=== PATIENT | female | born 1980 | race Two or more races ===

== ENCOUNTER 2016-07-20 13:39 | Emergency (ER) | payer SELFPAY ==
--- NOTE | 2016-07-20 14:14 | ER Document Report ---
ED Medical Screen (RME) - General Stated Complaint: BODY PAIN Notes: onset: yesterday fever, bodyaches, headaches chest pain on the right side of her chest that hurts with deep inhalation (-)recent travel, BC, tobacco use, general anesthesia over the past 90 days I have greeted and performed a rapid initial assessment of this patient. A comprehensive ED assessment and evaluation of the patient, analysis of test results and completion of the medical decision making process will be conducted by additional ED providers. TRAVEL OUTSIDE OF THE [place] IN LAST 30 DAYS: No - Related Data Allergies/Adverse Reactions: No Known Allergies Allergy (Verified 07/20/16 14:13) Past Medical History - Immunizations Hx Diphtheria, Pertussis, Tetanus Vaccination: No Physical Exam - Vital signs Vitals: Temp Pulse Resp BP Pulse Ox 97.9 F 81 16 112/64 97 07/20/16 13:49 07/20/16 13:49 07/20/16 13:49 07/20/16 13:49 07/20/16 13:49 Course - Vital Signs Vital signs: Temp Pulse Resp BP Pulse Ox 97.9 F 81 16 112/64 97 07/20/16 13:49 07/20/16 13:49 07/20/16 13:49 07/20/16 13:49 07/20/16 13:49
[2016-07-20] MEDS ORDERED: IBUPROFEN 800 MG TABLET PO ONE (14:15)
--- NOTE | 2016-07-20 15:30 | ER Document Report ---
ED General - General Chief Complaint: Pain All Over Stated Complaint: BODY PAIN Time seen by provider: 15:30 Mode of Arrival: Ambulatory Information source: Patient Notes: 35-year-old female complaining of sudden onset of myalgias, arthralgias, shivering, fever, and then sweats yesterday. She vomited once about 7 PM. Today she woke up with some lower lateral right sided chest pain that hurts when she moves and when she takes a deep breath. She does have a dry cough. Her vital signs are stable at triage. No sore throat runny nose. No abdominal pain flank pain. No diarrhea or constipation. No urinary urgency frequency or dysuria. No vaginal discharge. TRAVEL OUTSIDE OF THE [place] IN LAST 30 DAYS: No - Related Data Allergies/Adverse Reactions: No Known Allergies Allergy (Verified 07/20/16 14:13) Past Medical History - General Information source: Patient - Social History Smoking Status: Never Smoker Chew tobacco use (# tins/day): No Frequency of alcohol use: None Drug Abuse: None Lives with: Family Family History: Reviewed & Not Pertinent Patient has suicidal ideation: No Patient has homicidal ideation: No - Medical History Medical History: Negative Renal/ Medical History: Denies: Hx Peritoneal Dialysis Surgical Hx: Negative - Immunizations Hx Diphtheria, Pertussis, Tetanus Vaccination: No Review of Systems - Review of Systems Constitutional: See HPI EENT: No symptoms reported Cardiovascular: No symptoms reported Respiratory: See HPI Gastrointestinal: No symptoms reported Genitourinary: No symptoms reported Female Genitourinary: No symptoms reported Musculoskeletal: See HPI Skin: No symptoms reported Hematologic/Lymphatic: No symptoms reported Neurological/Psychological: No symptoms reported Physical Exam - Vital signs Vitals: Temp Pulse Resp BP Pulse Ox 97.9 F 81 16 112/64 97 07/20/16 13:49 07/20/16 13:49 07/20/16 13:49 07/20/16 13:49 07/20/16 13:49 Interpretation: Normal Notes: pale, looks dry - General General appearance: Alert In distress: None - HEENT Head: Normocephalic, Atraumatic Eyes: Normal Conjunctiva: Normal Pupils: PERRL Tympanic membrane: Normal Mucous membranes: Dry Pharynx: Normal Neck: Supple. No: Lymphadenopathy - Respiratory Respiratory status: No respiratory distress Chest status: Tender - lower right lateral chest wall Breath sounds: Normal Chest palpation: Normal - Cardiovascular Rhythm: Regular Heart sounds: Normal auscultation Murmur: No - Abdominal Inspection: Normal Distension: No distension Bowel sounds: Normal Tenderness: Tender - mild RUQ. No: Llamas's sign, Guarding, Rebound Organomegaly: No organomegaly. No: Hepatomegaly, Splenomegaly - Back Back: Normal, Nontender. No: CVA tenderness - Extremities General upper extremity: Normal inspection, Nontender, Normal color, Normal ROM , Normal temperature General lower extremity: Normal inspection, Nontender, Normal color, Normal ROM , Normal temperature, Normal weight bearing. No: Jose Angel's sign - Neurological Neuro grossly intact: Yes Cognition: Normal Orientation: AAOx4 [place] Coma Scale Eye Opening: Spontaneous [place] Coma Scale Verbal: Oriented [place] Coma Scale Motor: Obeys Commands [place] Coma Scale Total: 15 Speech: Normal Motor strength normal: LUE, RUE, LLE, RLE Sensory: Normal - Psychological Associated symptoms: Normal affect, Normal mood - Skin Skin Temperature: Warm Skin Moisture: Dry Skin Color: Normal Skin irregularity: negative: Rash Course - Re-evaluation Re-evalutation: 07/20/16 19:07 EKG is normal sinus rhythm, chest x-ray is negative. Labs are negative, urine pending. 07/20/16 19:16 I have consulted with the supervisory physician per [facility] Guidelines. Dr. Dunn reported off to Ed GARCIA at the bedside. Will l discharge her after the antibiotic is completed and to make sure that she can take oral fluids. Rocephin 1 g given IV for a urinary tract infection on urinalysis with 3+ bacteria and 56 WBCs. Urine culture is pending. Pt feeling better with pink returning to her cheeks. 07/20/16 19:19 - Vital Signs Vital signs: Temp Pulse Resp BP Pulse Ox 97.9 F 81 16 112/64 97 07/20/16 13:49 07/20/16 13:49 07/20/16 13:49 07/20/16 13:49 07/20/16 13:49 - Laboratory Result Diagrams: 07/20/16 17:27 07/20/16 17:27 Laboratory results interpreted by me: 07/20/16 18:37 Urine Protein 30 H Urine Ketones 20 H Urine Urobilinogen 2.0 H Ur Leukocyte Esterase SMALL H Urine Ascorbic Acid 40 H - Transfer of Care Care transferred to following provider: Mercedes GARCIA at 1910 Discharge - Discharge Clinical Impression: Right upper quadrant abdominal pain, right lower chest wall tender, dehydration Urinary tract infection Qualifiers: Urinary tract infection type: site unspecified Hematuria presence: without hematuria Qualified Code(s): N39.0 - Urinary tract infection, site not specified Condition: Good Disposition: HOME, SELF-CARE Instructions: Urinary Tract Infection ([facility]), Abdominal Pain ([facility]), Antinausea Medication ([facility]), Dehydration ([facility]), Vomiting ([facility]), Rocephin ([facility]), Cephalexin ([facility]) Additional Instructions: plenty of fluids reTurn to the emergency room if worse Prescriptions: Cephalexin Monohydrate [Keflex 500 mg Capsule] 500 mg PO QID #28 capsule Ondansetron HCl [Zofran 4 mg Tablet] 1 - 2 tab PO Q4H PRN #30 tablet PRN Reason: Forms: Return to Work
[2016-07-20] MEDS ORDERED: NORMAL SALINE 1000 ML 1,000 ML IV ONE ×2 (16:59→18:15)
[2016-07-20 17:41] LABS: ABSOLUTE EOSINOPHILS # (AUTO) 0.1 10^3/uL (0.0-0.6); ABSOLUTE LYMPHOCYTES (AUTO) 1.4 10^3/uL (0.5-4.7); ABSOLUTE MONOCYTES (AUTO) 0.6 10^3/uL (0.1-1.4); ABSOLUTE NEUT (AUTO) 4.2 10^3/uL (1.7-8.2); BASOPHILS % (AUTO) 0.7 % (0-2); EOSINOPHILS % (AUTO) 1.3 % (0-6); HEMOGLOBIN 12.3 g/dL (12.0-15.5); HGB HCT DIFFERENCE -0.1; LYMPHOCYTES % (AUTO) 22.5 % (13-45); MEAN CORPUSCULAR HEMOGLOBIN 28.3 pg (27.0-33.4); MEAN CORPUSCULAR HGB CONC 33.1 g/dL (32.0-36.0); MEAN CORPUSCULAR VOLUME 86 fl (80-97); MONOCYTES % (AUTO) 9.4 % (3-13); RED BLOOD COUNT 4.33 10^6/uL (3.72-5.28); RED CELL DISTRIBUTION WIDTH 12.7 % (11.5-14.0); SEGMENTED NEUTROPHILS % (AUTO) 66.1 % (42-78); WHITE BLOOD COUNT 6.4 10^3/uL (4.0-10.5)
[2016-07-20 18:01] LABS: ALANINE AMINOTRANSFERASE 31 U/L (9-52); ALBUMIN 4.2 g/dL (3.5-5.0); ALKALINE PHOSPHATASE 69 U/L (38-126); ANION GAP 11 (5-19); ASPARTATE AMINO TRANSFERASE 23 U/L (14-36); BILIRUBIN,TOTAL 0.5 mg/dL (0.2-1.3); BLOOD UREA NITROGEN 11 mg/dL (7-20); CALCIUM 9.5 mg/dL (8.4-10.2); CARBON DIOXIDE 26 mmol/L (22-30); CHLORIDE 102 mmol/L (98-107); CREATININE RESULT 0.56 mg/dL (0.52-1.25); LIPASE 64.4 U/L (23-300); POTASSIUM 4.1 mmol/L (3.6-5.0); SODIUM 139.4 mmol/L (137-145)
[2016-07-20 18:02] LABS: GLUCOSE 93 mg/dL (75-110)
[2016-07-20 19:03] LABS: APPEARANCE,URINE CLOUDY; BILIRUBIN,URINE NEGATIVE (NEGATIVE); GLUCOSE, URINE NEGATIVE (NEGATIVE); KETONES,URINE 20 mg/dL (NEGATIVE); LEUKOCYTE ESTERASE,URINE SMALL (NEGATIVE); NITRITE,URINE NEGATIVE (NEGATIVE); PROTEIN,URINE 30 mg/dL (NEGATIVE); URINE SPECIFIC GRAVITY 1.031
[2016-07-20] MEDS ORDERED: CEFTRIAXONE 1 GM/D5W RTU 50 ML IV ONE (19:08)
[2016-07-20 20:21] VITALS: BP 122/88
--- NOTE | 2016-07-21 10:58 | EKG REPORT ---
SEVERITY:- NORMAL ECG - SINUS RHYTHM : Confirmed by: Isidra Tovar 21-Jul-2016 10:58:12
== END 2016-07-20 20:19 | disposition home or self-care (01) ==
LOC: ER 13:39
DX: N39.0 Urinary tract infection, site not specified (principal); R10.11 Right upper quadrant pain; R07.89 Other chest pain; E86.0 Dehydration; M79.1 Myalgia; M25.50 Pain in unspecified joint
CPT/HCPCS: 93005; 99284; 96361; 96365; 36415; 87086; 83690; 85025; 87088; 80053; 81001; 87186; 71020; 93010; J7030; J0696

== ENCOUNTER 2016-11-14 22:46 | Inpatient (IN) | payer OTHER ==
[2016-11-15] MEDS ORDERED: NORMAL SALINE 1000 ML 1,000 ML IV ONE (00:41)
[2016-11-15] MEDS ORDERED: ONDANSETRON HCL INJ/PF 4 MG/2 ML SDV IV ONE (00:41)
[2016-11-15] MEDS ORDERED: MORPHINE SULFATE 10 MG/ML INJ IV ONE ×2 (00:41→07:10)
[2016-11-15 01:20] LABS: ABSOLUTE LYMPHOCYTES (AUTO) 0.8 10^3/uL (0.5-4.7); ABSOLUTE MONOCYTES (AUTO) 0.6 10^3/uL (0.1-1.4); ABSOLUTE NEUT (AUTO) 9.2 10^3/uL (1.7-8.2); BASOPHILS % (AUTO) 0.4 % (0-2); HEMATOCRIT 39.1 % (36.0-47.0); HGB HCT DIFFERENCE -0.1; LYMPHOCYTES % (AUTO) 7.7 % (13-45); MEAN CORPUSCULAR HEMOGLOBIN 27.7 pg (27.0-33.4); MEAN CORPUSCULAR HGB CONC 33.2 g/dL (32.0-36.0); MEAN CORPUSCULAR VOLUME 84 fl (80-97); MONOCYTES % (AUTO) 5.5 % (3-13); RED BLOOD COUNT 4.68 10^6/uL (3.72-5.28); RED CELL DISTRIBUTION WIDTH 12.9 % (11.5-14.0); SEGMENTED NEUTROPHILS % (AUTO) 86.4 % (42-78); WHITE BLOOD COUNT 10.7 10^3/uL (4.0-10.5)
[2016-11-15 01:42] LABS: ALANINE AMINOTRANSFERASE 30 U/L (9-52); ALBUMIN 4.2 g/dL (3.5-5.0); ALKALINE PHOSPHATASE 84 U/L (38-126); ANION GAP 11 (5-19); ASPARTATE AMINO TRANSFERASE 17 U/L (14-36); BILIRUBIN,DIRECT 0.6 mg/dL (0.0-0.4); BILIRUBIN,TOTAL 1.2 mg/dL (0.2-1.3); BLOOD UREA NITROGEN 12 mg/dL (7-20); CALCIUM 9.4 mg/dL (8.4-10.2); CARBON DIOXIDE 25 mmol/L (22-30); CHLORIDE 103 mmol/L (98-107); CREATININE RESULT 0.74 mg/dL (0.52-1.25); GLUCOSE 133 mg/dL (75-110); LIPASE 52.7 U/L (23-300); POTASSIUM 4.1 mmol/L (3.6-5.0); TOTAL PROTEIN 7.9 g/dL (6.3-8.2)
--- NOTE | 2016-11-15 02:57 | ER Document Report ---
ED General - General Chief Complaint: Flank Pain Stated Complaint: RIGHT FLANK PAIN Time Seen by Provider: 11/15/16 00:37 Notes: Patient is a 36-year-old female presents with complaint of pain in her right back and on the right side. She has had some vomiting. She says drinking liquids seems to make her pain worse. No dysuria. No fevers. No trauma to the area. No abnormal vaginal discharge or bleeding. No other complaints at this time. No previous history of kidney stones. TRAVEL OUTSIDE OF THE [place] IN LAST 30 DAYS: No - Related Data Allergies/Adverse Reactions: No Known Allergies Allergy (Verified 07/20/16 14:13) Past Medical History - Social History Smoking Status: Never Smoker Frequency of alcohol use: None Drug Abuse: None Family History: Reviewed & Not Pertinent Renal/ Medical History: Denies: Hx Peritoneal Dialysis - Immunizations Hx Diphtheria, Pertussis, Tetanus Vaccination: No Review of Systems - Review of Systems Notes: My Normal Review Basic REVIEW OF SYSTEMS: CONSTITUTIONAL : Denies fever, chills, or sweats. Denies recent illness. RESPIRATORY: Denies cough, cold, or chest congestion. Denies shortness of breath, difficulty breathing, or wheezing. GASTROINTESTINAL: Right-sided flank pain radiating around her abdomen. Denies nausea, vomiting, or diarrhea. Denies constipation. Last BM: GENITOURINARY: Denies difficulty urinating, painful urination, burning, frequency, or blood in urine. FEMALE GENITOURINARY: Denies vaginal bleeding, abnormal or irregular periods. MUSCULOSKELETAL: Right-sided back pain. SKIN: Denies rash or skin lesions. NEUROLOGICAL: Denies altered mental status or loss of consciousness. Denies headache. Denies weakness or paralysis or loss of use of either side. Denies problems with gait or speech. Denies sensory or motor loss. ALL OTHER SYSTEMS REVIEWED AND NEGATIVE. Physical Exam - Vital signs Vitals: Temp Pulse Resp BP Pulse Ox 99.6 F 124 H 18 114/58 L 97 11/14/16 22:51 11/14/16 22:51 11/14/16 22:51 11/14/16 22:51 11/14/16 22:51 - Notes Notes: General Appearance: Well nourished, alert, cooperative, no acute distress, moderate obvious discomfort. Vitals: reviewed, See vital signs table. Head: no swelling or tenderness to the head Eyes: PERRL, EOMI, Conjuctiva clear Mouth: No decreasd moisture Neck: Supple, no neck tenderness, No thyromegaly Lungs: No wheezing, No rales, No rhonci, No accessory muscle use, good air exchange bilaterally. Heart: Normal rate, Regular rythm, No murmur, no rub Abdomen: Normal BS, soft, No rigidity, no reproducible anterior abdominal tenderness to palpation., No guarding, no rebound, no abdominal masses, no organomegaly Back: Pain to palpation over right lower back. Extremities: strength 5/5 in all extremities, good pulses in all extremities, no swelling or tenderness in the extremities, no edema. Skin: warm, dry, appropriate color, no rash Neuro: speech clear, oriented x 3, normal affect, responds appropriately to questions. Course - Re-evaluation Re-evalutation: 11/15/16 03:16 Patient's pain has improved after the pain medication. She now feels like she has to urinate. Once we obtain a urinalysis will determine if any further studies are needed. She says she also just started her menstrual period. 11/15/16 05:50 CT scan unfortunately does show a kidney stone with hydronephrosis. I did not of her kidney stone in the infection and that she needs to see a urologist immediately. I did ask her what hospital she prefers. She said she prefers [facility]. I did call [facility] and spoke with Dr. Wilton Coreas, urologist, requested a call medicine to have the patient admitted to her service and they would see her in consult and put a stent in her. I am awaiting to hear back from the medicine team. 11/15/16 07:10 Patient was initially accepted to [facility]. They did give us a bed. Patient was not insured and therefore we were told by local transport services that we did not have way of transporting her there. This morning we actually have urology coverage. I therefore called our urologist this morning, Dr. Arredondo , who agrees that we can care for the patient here. He requests I call the hospitalist for potential admission and to him to help guide treatment of the infection and stone 11/15/16 07:19 [address] speak with Dr. Sorenson, hospitalist wine consultant, who agrees to admit the patient. - Vital Signs Vital signs: Temp Pulse Resp BP Pulse Ox 99.6 F 124 H 19 96/60 L 93 11/14/16 22:51 11/14/16 22:51 11/15/16 02:55 11/15/16 02:31 11/15/16 02:55 - Laboratory Result Diagrams: 11/15/16 01:09 11/15/16 01:09 Laboratory results interpreted by me: 11/15/16 11/15/16 11/15/16 01:09 01:09 03:34 WBC 10.7 H Seg Neutrophils % 86.4 H Lymphocytes % 7.7 L Absolute Neutrophils 9.2 H Glucose 133 H Direct Bilirubin 0.6 H Urine Protein 100 H Urine Ketones 20 H Urine Blood LARGE H Urine Urobilinogen 2.0 H Ur Leukocyte Esterase MODERATE H - Transfer of Care Notes: 11/15/16 05:50 Discharge - Discharge Clinical Impression: Kidney stone on right side UTI (urinary tract infection) Qualifiers: Urinary tract infection type: site unspecified Hematuria presence: with hematuria Qualified Code(s): N39.0 - Urinary tract infection, site not specified Condition: Stable Disposition: ADMITTED INPATIENT Admitting Provider: Hospitalist Unit Admitted: Medical Floor
[2016-11-15 04:11] LABS: APPEARANCE,URINE CLOUDY; BILIRUBIN,URINE NEGATIVE (NEGATIVE); GLUCOSE, URINE NEGATIVE (NEGATIVE); KETONES,URINE 20 mg/dL (NEGATIVE); LEUKOCYTE ESTERASE,URINE MODERATE (NEGATIVE); NITRITE,URINE NEGATIVE (NEGATIVE); PROTEIN,URINE 100 mg/dL (NEGATIVE)
[2016-11-15] MEDS ORDERED: CEFTRIAXONE INJ 1000 MG VIAL IV ONE (04:15)
--- NOTE | 2016-11-15 05:35 | RADIOLOGY REPORT (SQ) ---
EXAM DESCRIPTION: CT LTD RENAL STONE PROTOCOL ON COMPLETED DATE/TIME: 11/15/2016 5:14 am REASON FOR STUDY: flank pain right side COMPARISON: None. TECHNIQUE: CT scan of the abdomen and pelvis performed without intravenous or oral contrast. Images reviewed with lung, soft tissue, and bone windows. Reconstructed coronal and sagittal MPR images revi ewed. All images stored on PACS. All CT scanners at this facility use dose modulation, iterative reconstruction, and/or weight based d osing when appropriate to reduce radiation dose to as low as reasonably achievable (ALARA). [facility]: Dose Right [facility]: CareDose [facility]: Dose Right [facility]: Teradose 4D [facility]: ContextPlane RADIATION DOSE: 10.44mGy. LIMITATIONS: None. FINDINGS: LOWER CHEST: No significant findings. No nodules or infiltrates. NON-CONTRASTED LIVER, SPLEEN, ADRENALS: Evaluation limited by lack of IV contrast. No identified sign ificant masses. PANCREAS: No masses. No peripancreatic inflammatory changes. GALLBLADDER: No identified stones by CT criteria. No inflammatory changes to suggest cholecystitis. RIGHT KIDNEY AND URETER: The right kidney demonstrates irregular contours, scattered cortical calcifi cations, and rounded foci of hypoattenuation ; this is nonspecific, but may represent scarring on the basis of previous infectious process ease. No suspicious masses. Assessment limited by lack of IV c ontrast. Moderate hydronephrosis and ureterectasis with a 2 x 4 mm partially obstructing ureterolith just proximal to the ureterovesicular junction. LEFT KIDNEY AND URETER: No suspicious masses. Assessment limited by lack of IV contrast. No signifi cant calcifications. No hydronephrosis or hydroureter. AORTA AND RETROPERITONEUM: No aneurysm. No retroperitoneal masses or adenopathy. BOWEL AND PERITONEAL CAVITY: No obvious masses or inflammatory changes. No free fluid. APPENDIX: Not visualized. PELVIS, BLADDER, AND ABDOMINAL WALL:No abnormal masses. No free fluid. Bladder normal. BONES: No significant findings. OTHER: No other significant finding. IMPRESSION: 2 x 4 mm distal right ureterolith with upstream ureterectasis and moderate right-sided h ydronephrosis. Limited evaluation of the right kidney demonstrates irregular contours and heterogene ous attenuation suggesting scarring ; recommend correlation with past medical history. TECHNICAL DOCUMENTATION: JOB ID: [id number] Quality ID # [id number]: Final reports with documentation of one or more dose reduction techniques (e.g., Au tomated exposure control, adjustment of the mA and/or kV according to patient size, use of iterative reconstruction technique) 2010 [employer]- All Rights Reserved
[2016-11-15] MEDS ORDERED: CEFTRIAXONE 1 GM/D5W RTU 1 GM/50 ML RTUPB IV ONE (06:18)
[2016-11-15] MEDS ORDERED: ACETAMINOPHEN 325 MG TABLET PO PRN (07:19)
[2016-11-15] MEDS ORDERED: ONDANSETRON HCL INJ/PF 4 MG/2 ML SDV IV PRN (07:19)
[2016-11-15] MEDS ORDERED: PROMETHAZINE HCL 25 MG SUPP.RECT PR PRN (07:19)
[2016-11-15] MEDS: CEFTRIAXONE 1 GM/D5W RTU 50 ML IV SCH (10:30)
[2016-11-15] MEDS: KETOROLAC TROMETHAMINE INJ/PF 30 MG/1 ML SDV IV PRN ×2 (10:31→17:15)
[2016-11-15] MEDS: DOCUSATE SODIUM 100 MG CAPSULE PO SCH ×2 (10:31→17:15)
[2016-11-15] MEDS ORDERED: TAMSULOSIN HCL 0.4 MG CAP.SR.24H PO ONE (11:00)
--- NOTE | 2016-11-15 13:31 | PDOC CONSULTATION ---
Consultation Consult Date: 11/15/16 Attending physician:: ZOHRA HOWELL Consult reason:: flank pain History of Present Illness Admission Date/PCP: 11/15/16 07:19 Patient complains of: right flank pain History of Present Illness: MEHRDAD RODARTE is a 36 year old female with no significant pmh who presented with right flank pain. Pt reports that it began approximately 2 days ago. Fluid intake seems to make it worse. Pain medications have improved her pain which is currently minimal. She has associated nausea and an episode of emesis earlier this am. She denies any dysuria, hematuria, frequency/urgency. She denies a prior h/o recurrent UTI, only having one UTI during a prior . Past Medical History Cardiac Medical History: Reports: None Denies: Hyperlipidema, Hypertension Past Surgical History Past Surgical History: Reports: Tubal Ligation Social History Smoking Status: Never Smoker Frequency of Alcohol Use: Occasional Drugs: None - Advance Directive Resuscitation Status: Full Code Family History Family History: Reviewed & Not Pertinent Family History: daughter with a h/o stones (daughter's father has h/o of stones as well) Parental Family History Reviewed: Yes Children Family History Reviewed: Yes Sibling(s) Family History Reviewed.: Yes Medication/Allergy Home Medications: No Home Medications 11/15/16 Allergies/Adverse Reactions: No Known Allergies Allergy (Verified 07/20/16 14:13) Review of Systems All systems: reviewed and no additional remarkable complaints except as stated Constitutional: PRESENT: other - malaise, subjective fevers Cardiovascular: ABSENT: chest pain Respiratory: ABSENT: other - denies SOB Gastrointestinal: PRESENT: nausea, vomiting Physical Exam Vital Signs: Temp Pulse Resp BP Pulse Ox 98.8 F 94 20 98/48 L 97 11/15/16 08:58 11/15/16 08:58 11/15/16 08:58 11/15/16 08:58 11/15/16 08:58 General appearance: PRESENT: no acute distress, well-developed, well-nourished Head exam: PRESENT: atraumatic, normocephalic Eye exam: PRESENT: EOMI. ABSENT: scleral icterus Ear exam: PRESENT: normal external ear exam Mouth exam: PRESENT: moist Neck exam: PRESENT: other - supple, no masses. ABSENT: tenderness Respiratory exam: PRESENT: symmetrical, unlabored. ABSENT: stridor Cardiovascular exam: PRESENT: RRR, other - no JVD Vascular exam: PRESENT: normal capillary refill GI/Abdominal exam: PRESENT: soft. ABSENT: distended, organolmegaly, tenderness Rectal exam: PRESENT: deferred Gentrourinary exam: PRESENT: other - R CVAT noted Musculoskeletal exam: PRESENT: full ROM, normal inspection. ABSENT: deformity Neurological exam: PRESENT: alert, awake, CN II-XII grossly intact Psychiatric exam: PRESENT: appropriate affect, normal mood. ABSENT: anxious Skin exam: PRESENT: dry, intact, warm Results Impressions: Limited or Localized CT 11/15/16 04:14 IMPRESSION: 2 x 4 mm distal right ureterolith with upstream ureterectasis and moderate right-sided hydronephrosis. Limited evaluation of the right kidney demonstrates irregular contours and heterogeneous attenuation suggesting scarring ; recommend correlation with past medical history. Status: Image reviewed by me - reviewed CT scan images at length, spoke with Radiologist tombstone setter, Dr. Stevens, agrees right kidney with areas of hypoattenuation with mild right hydro and ureterectasis, we both agreed no obvious ureteral stone, although, there are multiple phleboliths noted within pelvis, findings most consistent with pyelonephritis Assessment & Plan - Diagnosis (1) Pyelonephritis Is this a current diagnosis for this admission?: Yes (2) Ureterectasis Is this a current diagnosis for this admission?: Yes - Plan Summary Plan Summary: 36 y/o presenting with right flank pain, UA c/w UTI, mild leukocytosis, with findings c/w right pyelonephritis and ureterectasis on CT, no obvious stone noted within ureter after reviewing CT films and discussing with radiologist Dr. Stevens who reviewed the films and agrees. Recommend IV fluid resuscitation and broad spectrum IV abx pending cultures. No acute urological intervention necessary at present. Will follow.
[2016-11-15] MEDS ORDERED: HEPARIN SOD (PORCINE) 5,000 UNIT/ML 1 ML SYRINGE SUBCUT SCH (14:00)
[2016-11-15] MEDS: MORPHINE SULFATE 10 MG/ML INJ IV PRN ×2 (14:20→20:52)
[2016-11-15] MEDS ORDERED: NORMAL SALINE 1000 ML 2,000 ML IV ONE (18:06)
--- NOTE | 2016-11-15 18:12 | PDOC H&P ---
History of Present Illness Admission Date/PCP: 11/15/16 07:19 History of Present Illness: MEHRDAD RODARTE is a 36 year old female with no significant past medical history the family who presented with right flank pain. Pt reports that it began approximately 2 days ago. Fluid intake seems to make it worse. Pain medications have improved her pain which is currently minimal. She has associated nausea and an episode of emesis earlier this am. She denies any dysuria, hematuria, frequency/urgency. Patient does report subjective fever, fatigue and dizziness. She is referred to hospital service for infected nephrolithiasis. E Past Medical History Cardiac Medical History: Reports: None Denies: Hyperlipidema, Hypertension Past Surgical History Past Surgical History: Reports: Tubal Ligation Social History Smoking Status: Never Smoker Frequency of Alcohol Use: Occasional Drugs: None - Advance Directive Resuscitation Status: Full Code Surrogate healthcare decision maker:: Brock Sandoval Family History Family History: CAD - Grafting when he came in because he was currently 9 right not wanting the ER and I did an a and he is belly is tender surgical, Malignancy - bladder and leg and he like what he told them I am likely nurse says he that they told him and I said and it depends on what the nurses when she calls you if the nurse called you and the patient's vitals are normal and he looks normal and acting Parental Family History Reviewed: Yes Children Family History Reviewed: Yes Sibling(s) Family History Reviewed.: Yes Medication/Allergy Home Medications: No Home Medications 11/15/16 Allergies/Adverse Reactions: No Known Allergies Allergy (Verified 07/20/16 14:13) Review of Systems Constitutional: PRESENT: anorexia, chills, fatigue, fever(s). ABSENT: headache( s), weight gain, weight loss Eyes: ABSENT: visual disturbances Ears: ABSENT: hearing changes Cardiovascular: ABSENT: chest pain, dyspnea on exertion, edema, orthropnea, palpitations Respiratory: ABSENT: cough, hemoptysis Gastrointestinal: PRESENT: abdominal pain. ABSENT: constipation, diarrhea, hematemesis, hematochezia, nausea, vomiting Genitourinary: ABSENT: dysuria, hematuria Musculoskeletal: ABSENT: joint swelling Integumentary: ABSENT: rash, wounds Neurological: ABSENT: abnormal gait, abnormal speech, confusion, dizziness, focal weakness, syncope Psychiatric: ABSENT: anxiety, depression, homidical ideation, suicidal ideation Endocrine: ABSENT: cold intolerance, heat intolerance, polydipsia, polyuria Hematologic/Lymphatic: ABSENT: easy bleeding, easy bruising Physical Exam Vital Signs: Temp Pulse Resp BP Pulse Ox 98.6 F 92 18 81/55 L 96 11/15/16 16:38 11/15/16 16:38 11/15/16 16:38 11/15/16 16:38 11/15/16 16:38 Intake & Output 11/14/16 11/15/16 11/16/16 06:59 06:59 06:59 Intake Total 300 Output Total 0 Balance 300 General appearance: PRESENT: mild distress - Acutely ill-appearing, well- developed, well-nourished Head exam: PRESENT: atraumatic, normocephalic Eye exam: PRESENT: conjunctiva pink, EOMI, PERRLA. ABSENT: scleral icterus Ear exam: PRESENT: normal external ear exam Mouth exam: PRESENT: dry mucosa, tongue midline Neck exam: ABSENT: JVD, lymphadenopathy, thyromegaly, tracheal deviation Respiratory exam: PRESENT: clear to auscultation heraclio. ABSENT: rales, rhonchi, wheezes Cardiovascular exam: PRESENT: RRR, +S1, +S2, tachycardia. ABSENT: diastolic murmur, gallop, rubs, systolic murmur Pulses: PRESENT: normal dorsalis pedis pul Vascular exam: PRESENT: normal capillary refill GI/Abdominal exam: PRESENT: normal bowel sounds, soft. ABSENT: distended, firm , guarding, mass, Llamas's sign, organolmegaly, rebound, rigid, tenderness Rectal exam: PRESENT: deferred Extremities exam: PRESENT: full ROM. ABSENT: calf tenderness, clubbing, pedal edema Neurological exam: PRESENT: alert, awake, oriented to person, oriented to place , oriented to time, oriented to situation, CN II-XII grossly intact. ABSENT: motor sensory deficit Psychiatric exam: PRESENT: appropriate affect, normal mood. ABSENT: homicidal ideation, suicidal ideation Skin exam: PRESENT: dry, intact, warm. ABSENT: cyanosis, rash Results Impressions: Limited or Localized CT 11/15/16 04:14 IMPRESSION: 2 x 4 mm distal right ureterolith with upstream ureterectasis and moderate right-sided hydronephrosis. Limited evaluation of the right kidney demonstrates irregular contours and heterogeneous attenuation suggesting scarring ; recommend correlation with past medical history. Assessment & Plan - Diagnosis (1) Hydronephrosis Qualifiers: Hydronephrosis type: with ureteral calculous obstruction Qualified Code(s): N13.2 - Hydronephrosis with renal and ureteral calculous obstruction Is this a current diagnosis for this admission?: YesPlan: Concern for infected obstructed stone and will consult urology Place patient on IV fluids, Flomax, morphine, Toradol, and Rocephin. (2) Pyelonephritis Is this a current diagnosis for this admission?: Yes (3) UTI (urinary tract infection) Qualifiers: Urinary tract infection type: site unspecified Hematuria presence: with hematuria Qualified Code(s): N39.0 - Urinary tract infection, site not specified Is this a current diagnosis for this admission?: Yes - Time Time Spent: 30 to 50 Minutes Medications reviewed and adjusted accordingly: Yes - Inpatient Certification Based on my medical assessment, after consideration of the patient's comorbidities, presenting symptoms, or acuity I expect that the services needed warrant INPATIENT care.: Yes I certify that my determination is in accordance with my understanding of Medicare's requirements for reasonable and necessary INPATIENT services [42 CFR 412.3e].: Yes Medical Necessity: Need For IV Fluids, Need for Pain Control, Need for IV Antibiotics, Need for Surgery Post Hospital Care: D/C Soda Dialyzer Documentation
[2016-11-16] MEDS ORDERED: NORMAL SALINE 1000 ML 2,000 ML IV ONE (01:01)
[2016-11-16 05:50] LABS: MEAN CORPUSCULAR VOLUME 86 fl (80-97)
[2016-11-16 06:05] LABS: ANION GAP 10 (5-19); BLOOD UREA NITROGEN 8 mg/dL (7-20); CALCIUM 7.1 mg/dL (8.4-10.2); CARBON DIOXIDE 21 mmol/L (22-30); CHLORIDE 109 mmol/L (98-107); CREATININE RESULT 0.53 mg/dL (0.52-1.25); GLUCOSE 76 mg/dL (75-110); POTASSIUM 3.9 mmol/L (3.6-5.0); SODIUM 139.9 mmol/L (137-145)
[2016-11-16 06:09] LABS: ABSOLUTE MONOCYTES (AUTO) 0.4 10^3/uL (0.1-1.4); ABSOLUTE NEUT (AUTO) 4.2 10^3/uL (1.7-8.2); BASOPHILS % (AUTO) 0.6 % (0-2); EOSINOPHILS % (AUTO) 0.8 % (0-6); HEMATOCRIT 30.5 % (36.0-47.0); HGB HCT DIFFERENCE -0.8; LYMPHOCYTES % (AUTO) 17.9 % (13-45); MEAN CORPUSCULAR HGB CONC 32.4 g/dL (32.0-36.0); MONOCYTES % (AUTO) 7.1 % (3-13); RED BLOOD COUNT 3.53 10^6/uL (3.72-5.28); RED CELL DISTRIBUTION WIDTH 12.9 % (11.5-14.0); SEGMENTED NEUTROPHILS % (AUTO) 73.6 % (42-78); WHITE BLOOD COUNT 5.8 10^3/uL (4.0-10.5)
[2016-11-16] MEDS: NORMAL SALINE 1000 ML 1,000 ML IV PRN ×2 (06:09→19:38)
[2016-11-16] MEDS: KETOROLAC TROMETHAMINE INJ/PF 30 MG/1 ML SDV IV PRN ×2 (06:15→17:18)
[2016-11-16 06:18] LABS: HEMOGLOBIN 9.9 g/dL (12.0-15.5)
[2016-11-16] MEDS ORDERED: MORPHINE SULFATE 10 MG/ML INJ IV PRN (07:51)
[2016-11-16] MEDS: LACTOBACILLUS ACIDOPHILUS 250 MG TAB PO SCH ×2 (10:20→17:18)
[2016-11-16] MEDS: DOCUSATE SODIUM 100 MG CAPSULE PO SCH ×2 (10:20→17:18)
[2016-11-16] MEDS: CEFTRIAXONE 1 GM/D5W RTU 50 ML IV SCH (10:20)
--- NOTE | 2016-11-16 11:19 | PDOC PROGRESS REPORT ---
Subjective Subjective:: Feels better overall. Denies fevers overnight. Physical Exam Vital Signs: Temp Pulse Resp BP Pulse Ox 98.6 F 82 16 109/67 97 11/16/16 10:00 11/16/16 10:00 11/16/16 10:00 11/16/16 10:00 11/16/16 10:00 Intake & Output 11/15/16 11/16/16 11/17/16 06:59 06:59 06:59 Intake Total 540 Output Total 0 Balance 540 Weight 80 kg General appearance: PRESENT: no acute distress, well-developed, well-nourished Head exam: PRESENT: atraumatic, normocephalic Respiratory exam: PRESENT: symmetrical, unlabored Results Laboratory Results: 11/16/16 04:40 11/16/16 04:40 11/16/16 11/16/16 04:40 04:40 WBC 5.8 RBC 3.53 L Hgb 9.9 L D Hct 30.5 L MCV 86 MCH 28.0 MCHC 32.4 RDW 12.9 Plt Count 162 Seg Neutrophils % 73.6 Lymphocytes % 17.9 Monocytes % 7.1 Eosinophils % 0.8 Basophils % 0.6 Absolute Neutrophils 4.2 Absolute Lymphocytes 1.0 Absolute Monocytes 0.4 Absolute Eosinophils 0.0 Absolute Basophils 0.0 Sodium 139.9 Potassium 3.9 Chloride 109 H Carbon Dioxide 21 L Anion Gap 10 BUN 8 Creatinine 0.53 Est GFR ( Amer) > 60 Est GFR (Non-Af Amer) > 60 Glucose 76 Calcium 7.1 L Impressions: Limited or Localized CT 11/15/16 04:14 IMPRESSION: 2 x 4 mm distal right ureterolith with upstream ureterectasis and moderate right-sided hydronephrosis. Limited evaluation of the right kidney demonstrates irregular contours and heterogeneous attenuation suggesting scarring ; recommend correlation with past medical history. Assessment & Plan - Diagnosis (1) Pyelonephritis Is this a current diagnosis for this admission?: Yes (2) Ureterectasis Is this a current diagnosis for this admission?: Yes - Plan Summary Plan Summary: Pt clinically improving on BS IV abx, IVF resuscitation. UCX growing GNRs, continue BS IV pending Urine C&S, recommend 14 day course of culture specific abx, may f/u with me in 1-2 weeks after d/c, will get renal US as outpatient after pyelonephritis adequately treat to assess for resolution of hydro.
[2016-11-16] MEDS ORDERED: ONDANSETRON HCL INJ/PF 4 MG/2 ML SDV IV PRN (13:30)
--- NOTE | 2016-11-16 14:34 | PDOC PROGRESS REPORT ---
Subjective Progress Note for:: 11/16/16 Subjective:: Patient reports she is feeling improved. Patient admits to chills but no fever. Denies chest pain, shortness of breath, nausea, vomiting, abdominal pain, headache, weakness. Physical Exam Vital Signs: Temp Pulse Resp BP Pulse Ox 98.6 F 81 14 93/50 L 98 11/15/16 23:40 11/15/16 23:40 11/15/16 23:40 11/15/16 23:40 11/15/16 23:40 Intake & Output 11/15/16 11/16/16 11/17/16 06:59 06:59 06:59 Intake Total 540 Output Total 0 Balance 540 Weight 80 kg Exam: General: A+Ox3, no acute respiratory distress HEENT: normocephalic, pupils equal round and reactive to light, oropharynx is moist, pink, no scleral icterus, no conjunctival injection Neck: no JVD, trachea midline Chest: Clear to auscultation bilaterally, prolonged expiratory phase CV: Regular rate and rhythm, normal S1 and S2; no m/r/g Abdomen: soft, nontender to palpation, nondistended, active bowel sounds; no rebound, rigidity, or guarding Extremities: No cyanosis or edema or clubbing Neuro: Cranial nerves grossly intact without focal deficits. Psych: Normal mood and affect Results Laboratory Results: 11/16/16 04:40 11/16/16 04:40 11/16/16 11/16/16 04:40 04:40 WBC 5.8 RBC 3.53 L Hgb 9.9 L D Hct 30.5 L MCV 86 MCH 28.0 MCHC 32.4 RDW 12.9 Plt Count 162 Seg Neutrophils % 73.6 Lymphocytes % 17.9 Monocytes % 7.1 Eosinophils % 0.8 Basophils % 0.6 Absolute Neutrophils 4.2 Absolute Lymphocytes 1.0 Absolute Monocytes 0.4 Absolute Eosinophils 0.0 Absolute Basophils 0.0 Sodium 139.9 Potassium 3.9 Chloride 109 H Carbon Dioxide 21 L Anion Gap 10 BUN 8 Creatinine 0.53 Est GFR ( Amer) > 60 Est GFR (Non-Af Amer) > 60 Glucose 76 Calcium 7.1 L Impressions: Limited or Localized CT 11/15/16 04:14 IMPRESSION: 2 x 4 mm distal right ureterolith with upstream ureterectasis and moderate right-sided hydronephrosis. Limited evaluation of the right kidney demonstrates irregular contours and heterogeneous attenuation suggesting scarring ; recommend correlation with past medical history. Assessment & Plan - Diagnosis (1) Pyelonephritis Is this a current diagnosis for this admission?: YesPlan: Patient with pyelonephritis currently growing proteus mirabilis. On Rocephin Day #2. If worsening pain or fever, patient will have to undergo stent placement. No stone is visualized by urology on CT. (2) Hydronephrosis Qualifiers: Hydronephrosis type: with ureteral calculous obstruction Qualified Code(s): N13.2 - Hydronephrosis with renal and ureteral calculous obstruction Is this a current diagnosis for this admission?: Yes (3) UTI (urinary tract infection) Qualifiers: Urinary tract infection type: site unspecified Hematuria presence: with hematuria Qualified Code(s): N39.0 - Urinary tract infection, site not specified Is this a current diagnosis for this admission?: Yes - Time Time Spent with patient: 25-34 minutes Medications reviewed and adjusted accordingly: Yes Anticipated discharge: Home Within: within 72 hours
[2016-11-17] MEDS: NORMAL SALINE 1000 ML 1,000 ML IV PRN (01:54)
[2016-11-17 05:25] LABS: ABSOLUTE BASOPHILS # (AUTO) 0.1 10^3/uL (0.0-0.2); ABSOLUTE EOSINOPHILS # (AUTO) 0.1 10^3/uL (0.0-0.6); ABSOLUTE LYMPHOCYTES (AUTO) 0.8 10^3/uL (0.5-4.7); ABSOLUTE MONOCYTES (AUTO) 0.2 10^3/uL (0.1-1.4); ABSOLUTE NEUT (AUTO) 4.8 10^3/uL (1.7-8.2); BASOPHILS % (AUTO) 1.1 % (0-2); EOSINOPHILS % (AUTO) 0.9 % (0-6); HEMOGLOBIN 10.6 g/dL (12.0-15.5); HGB HCT DIFFERENCE -0.2; LYMPHOCYTES % (AUTO) 14.3 % (13-45); MEAN CORPUSCULAR HEMOGLOBIN 27.8 pg (27.0-33.4); MEAN CORPUSCULAR VOLUME 84 fl (80-97); MONOCYTES % (AUTO) 3.1 % (3-13); RED BLOOD COUNT 3.79 10^6/uL (3.72-5.28); RED CELL DISTRIBUTION WIDTH 12.5 % (11.5-14.0); SEGMENTED NEUTROPHILS % (AUTO) 80.6 % (42-78); WHITE BLOOD COUNT 5.9 10^3/uL (4.0-10.5)
[2016-11-17 05:42] LABS: ANION GAP 9 (5-19); BLOOD UREA NITROGEN 7 mg/dL (7-20); CALCIUM 7.9 mg/dL (8.4-10.2); CARBON DIOXIDE 20 mmol/L (22-30); CHLORIDE 111 mmol/L (98-107); CREATININE RESULT 0.54 mg/dL (0.52-1.25); GLUCOSE 99 mg/dL (75-110); SODIUM 139.5 mmol/L (137-145)
[2016-11-17] MEDS: LACTOBACILLUS ACIDOPHILUS 250 MG TAB PO SCH (09:07)
[2016-11-17] MEDS: DOCUSATE SODIUM 100 MG CAPSULE PO SCH (09:07)
[2016-11-17] MEDS: CEFTRIAXONE 1 GM/D5W RTU 50 ML IV SCH (09:09)
[2016-11-17 15:25] VITALS: BP 109/67
--- NOTE | 2016-11-17 16:47 | PDOC DISCHARGE SUMMARY ---
General - Admit/Disc Date/PCP Admission Date/Primary Care Provider: 11/15/16 07:19 Discharge Date: 11/17/16 - Discharge Diagnosis (1) Sepsis Is this a current diagnosis for this admission?: Yes (2) Pyelonephritis Is this a current diagnosis for this admission?: Yes (3) Hydronephrosis Is this a current diagnosis for this admission?: Yes - Additional Information Resuscitation Status: Full Code Discharge Diet: Regular Discharge Activity: Activity As Tolerated Home Medications: Ciprofloxacin HCl [Cipro 500 mg Tablet] 500 mg PO BID #28 tablet 11/17/16 History of Present Illness Patient complains of: right flank pain History of Present Illness: MEHRDAD RODARTE is a 36 year old female with no significant past medical history the family who presented with right flank pain. Pt reports that it began approximately 2 days ago. Fluid intake seems to make it worse. Pain medications have improved her pain which is currently minimal. She has associated nausea and an episode of emesis earlier this am. She denies any dysuria, hematuria, frequency/urgency. Patient does report subjective fever, fatigue and dizziness. She is referred to hospital service for infected nephrolithiasis. Hospital Course Hospital Course: Patient was admitted for pyelonephritis. She was seen by Dr. Arredondo of urology. She was treated with IV antibiotics until cultures return growing E. coli sensitive to Cipro. She is discharged home on oral Cipro stable condition. She will follow up with urology as an outpatient. Physical Exam Vital Signs: Temp Pulse Resp BP Pulse Ox 98.8 F 85 21 H 109/67 91 L 11/17/16 15:23 11/17/16 15:23 11/17/16 15:23 11/17/16 15:23 11/17/16 15:23 Intake & Output 11/16/16 11/17/16 11/18/16 06:59 06:59 06:59 Intake Total 540 2930 700 Output Total 0 650 Balance 540 2280 700 Weight 80 kg 83.8 kg Results Laboratory Results: 11/17/16 04:32 11/17/16 04:32 11/17/16 11/17/16 04:32 04:32 WBC 5.9 RBC 3.79 Hgb 10.6 L Hct 32.0 L MCV 84 MCH 27.8 MCHC 33.0 RDW 12.5 Plt Count 213 Seg Neutrophils % 80.6 H Lymphocytes % 14.3 Monocytes % 3.1 Eosinophils % 0.9 Basophils % 1.1 Absolute Neutrophils 4.8 Absolute Lymphocytes 0.8 Absolute Monocytes 0.2 Absolute Eosinophils 0.1 Absolute Basophils 0.1 Sodium 139.5 Potassium 4.0 Chloride 111 H Carbon Dioxide 20 L Anion Gap 9 BUN 7 Creatinine 0.54 Est GFR ( Amer) > 60 Est GFR (Non-Af Amer) > 60 Glucose 99 Calcium 7.9 L 11/15/16 09:10 Blood Culture - Preliminary Blood NO GROWTH AFTER 48 HOURS 11/15/16 08:08 Blood Culture - Preliminary Blood NO GROWTH AFTER 48 HOURS 11/15/16 03:34 Urine Culture - Final Clean Catch Midstream Escherichia Coli Impressions: Limited or Localized CT 11/15/16 04:14 IMPRESSION: 2 x 4 mm distal right ureterolith with upstream ureterectasis and moderate right-sided hydronephrosis. Limited evaluation of the right kidney demonstrates irregular contours and heterogeneous attenuation suggesting scarring ; recommend correlation with past medical history. Qualifiers PATEINT BEING DISCHARGED WITH ANY OF THE FOLLOWING DIAGNOSIS?: No Plan Time Spent: Less than 30 Minutes
== END 2016-11-17 15:00 | disposition home or self-care (01) | DRG 872 ==
LOC: ER 22:46 → EH 11-15 07:19 → UNDOADMIN 11-15 07:27 → EH 11-15 07:27 → 4N 11-15 08:31
PROVIDERS: ADMIT Family Medicine; ATTEND Family Medicine
DX: A41.9 Sepsis, unspecified organism (principal); N13.6 Pyonephrosis; B96.20 Unspecified Escherichia coli [E. coli] as the cause of diseases classified elsewhere; Z98.51 Tubal ligation status; Z82.49 Family history of ischemic heart disease and other diseases of the circulatory system
CPT/HCPCS: 36415; 76380; 80048; 80053; 81001; 83690; 84703; 85025; 87040; 87086; 87088; 87186; 96361; 96365; 96375; 99284; J0696; J1885; J2270; J2405; J7030

== ENCOUNTER 2018-12-15 16:51 | Emergency (ER) | payer SELFPAY ==
--- NOTE | 2018-12-15 17:31 | ER Document Report ---
ED Medical Screen (RME) - General Chief Complaint: Flank Pain Stated Complaint: FLANK PAIN Time Seen by Provider: 12/15/18 17:28 Mode of Arrival: Ambulatory Information source: Patient Notes: 38-year-old female presented to ED for complaint of right flank pain x3 days. She also has blood in the urine. She states she has had nausea chills dry heaves and weakness. She states she had a history of a kidney stone a year ago. She states she has pain in the right flank when she urinates. Patient is alert oriented respirations regular and unlabored speaking in full sentences walks with even steady gait. I have greeted and performed a rapid initial assessment of this patient. A comprehensive ED assessment and evaluation of the patient, analysis of test results and completion of medical decision making process will be conducted by an additional ED providers. Dictation of this chart was performed using voice recognition software; therefore, there may be some unintended grammatical errors. TRAVEL OUTSIDE OF THE [place] IN LAST 30 DAYS: No - Related Data Allergies/Adverse Reactions: No Known Allergies Allergy (Verified 12/15/18 16:52) Past Medical History - Past Medical History Cardiac Medical History: Denies: Hx Hypercholesterolemia, Hx Hypertension Renal/ Medical History: Denies: Hx Peritoneal Dialysis Past Surgical History: Reports: Hx Tubal Ligation - Immunizations Hx Diphtheria, Pertussis, Tetanus Vaccination: No Physical Exam - Vital signs Vitals: Temp Pulse Resp BP Pulse Ox 100.1 F 103 H 18 103/70 98 12/15/18 16:55 12/15/18 16:55 12/15/18 16:55 12/15/18 16:55 12/15/18 16:55 Course - Vital Signs Vital signs: Temp Pulse Resp BP Pulse Ox 100.1 F 103 H 18 103/70 98 12/15/18 16:55 12/15/18 16:55 12/15/18 16:55 12/15/18 16:55 12/15/18 16:55
[2018-12-15] MEDS ORDERED: ONDANSETRON HCL INJ/PF 4 MG/2 ML SDV IV ONE (17:32)
[2018-12-15] MEDS ORDERED: NORMAL SALINE 1000 ML 1,000 ML IV ONE (17:32)
[2018-12-15 18:01] LABS: ABSOLUTE LYMPHOCYTES (AUTO) 1.1 10^3/uL (0.5-4.7); ABSOLUTE MONOCYTES (AUTO) 0.6 10^3/uL (0.1-1.4); ABSOLUTE NEUT (AUTO) 7.3 10^3/uL (1.7-8.2); BASOPHILS % (AUTO) 0.5 % (0-2); EOSINOPHILS % (AUTO) 0.1 % (0-6); HEMATOCRIT 38.3 % (36.0-47.0); LYMPHOCYTES % (AUTO) 12.4 % (13-45); MEAN CORPUSCULAR HEMOGLOBIN 28.3 pg (27.0-33.4); MEAN CORPUSCULAR HGB CONC 33.9 g/dL (32.0-36.0); MEAN CORPUSCULAR VOLUME 83 fl (80-97); MONOCYTES % (AUTO) 6.3 % (3-13); PLATELET COUNT 243 10^3/uL (150-450); RED BLOOD COUNT 4.59 10^6/uL (3.72-5.28); RED CELL DISTRIBUTION WIDTH 13.1 % (11.5-14.0); SEGMENTED NEUTROPHILS % (AUTO) 80.7 % (42-78); TOTAL CELLS COUNTED % (AUTO) 100 %
[2018-12-15 18:20] LABS: ALANINE AMINOTRANSFERASE 21 U/L (9-52); ALBUMIN 4.5 g/dL (3.5-5.0); ALKALINE PHOSPHATASE 69 U/L (38-126); ANION GAP 11 (5-19); ASPARTATE AMINO TRANSFERASE 17 U/L (14-36); BILIRUBIN,DIRECT 0.3 mg/dL (0.0-0.4); BILIRUBIN,TOTAL 0.7 mg/dL (0.2-1.3); BLOOD UREA NITROGEN 11 mg/dL (7-20); CALCIUM 9.5 mg/dL (8.4-10.2); CARBON DIOXIDE 24 mmol/L (22-30); CHLORIDE 103 mmol/L (98-107); GLUCOSE 89 mg/dL (75-110); POTASSIUM 4.1 mmol/L (3.6-5.0); SODIUM 138.2 mmol/L (137-145); TOTAL PROTEIN 7.9 g/dL (6.3-8.2)
[2018-12-15 18:28] LABS: APPEARANCE,URINE CLOUDY; BILIRUBIN,URINE NEGATIVE (NEGATIVE); COLOR,URINE AMBER; GLUCOSE, URINE NEGATIVE (NEGATIVE); KETONES,URINE 80 mg/dL (NEGATIVE); LEUKOCYTE ESTERASE,URINE LARGE (NEGATIVE); NITRITE,URINE NEGATIVE (NEGATIVE); PROTEIN,URINE 100 mg/dL (NEGATIVE); URINE SPECIFIC GRAVITY 1.021; UROBILINOGEN,URINE NEGATIVE mg/dL (<2.0)
--- NOTE | 2018-12-15 18:35 | RADIOLOGY REPORT (SQ) ---
EXAM DESCRIPTION: U/S RETROPERITON (RENAL/AORTA) COMPLETED DATE/TIME: 12/15/2018 6:23 pm REASON FOR STUDY: Right flank pain, blood in the urine COMPARISON: None. TECHNIQUE: Dynamic and static grayscale images acquired of the kidneys and bladder and recorded on P ACS. Additional selected color Doppler and spectral images recorded. LIMITATIONS: None. FINDINGS: RIGHT KIDNEY: Normal size. Normal echogenicity. No solid or suspicious masses. No hydronep hrosis. No calcifications. LEFT KIDNEY: Normal size. Normal echogenicity. No solid or suspicious masses. No hydronephrosis. A 7 mm shadowing echogenic focus is seen within the inferior pole. BLADDER: Not evaluated due to patient voiding prior to examination. OTHER FINDINGS: No other significant finding. IMPRESSION: No evidence of hydronephrosis. 7 mm nonobstructing nephrolith within the left inferior pole. TECHNICAL DOCUMENTATION: JOB ID: [id number] [employer]- All Rights Reserved Reading location - IP/workstation name: [email or web address]
[2018-12-15 19:45] VITALS: BP 107/59
[2018-12-15] MEDS ORDERED: CEFTRIAXONE 1 GM/D5W RTU 1 GM/50 ML RTUPB IV ONE (20:49)
[2018-12-15] MEDS ORDERED: METOCLOPRAMIDE HCL INJ/PF 10 MG/2 ML SDV IV ONE (20:49)
--- NOTE | 2018-12-15 20:56 | ER Document Report ---
ED General - General Chief Complaint: Flank Pain Stated Complaint: FLANK PAIN Time Seen by Provider: 12/15/18 17:28 Mode of Arrival: Ambulatory Information source: Patient TRAVEL OUTSIDE OF THE [place] IN LAST 30 DAYS: No - HPI Patient complains to provider of: Right flank pain, hematuria, nausea, chills, weakness Onset: Other - 3 days ago Onset/Duration: Constant Quality of pain: Cramping Severity: Severe Pain Level: 4 Associated symptoms: Nausea. denies: Chills, Diarrhea, Fever, Vomiting Exacerbated by: Denies Relieved by: Denies Similar symptoms previously: No Recently seen / treated by doctor: No Notes: 38-year-old female coming in today with onset right flank pain, hematuria, nausea, chills, weakness, fever for the past 3 days. History of kidney stones in the past. - Related Data Allergies/Adverse Reactions: No Known Allergies Allergy (Verified 12/15/18 16:52) Past Medical History - General Information source: Patient - Social History Smoking Status: Unknown if Ever Smoked Chew tobacco use (# tins/day): No Frequency of alcohol use: Social Drug Abuse: None Family History: CAD - Grafting when he came in because he was currently 10 right not wanting the ER and I did an a and he is belly is tender surgical, Malignancy - bladder and leg and he like what he told them I am likely nurse says he that they told him and I said and it depends on what the nurses when she calls you if the nurse called you and the patient's vitals are normal and he looks normal and acting Patient has suicidal ideation: No Patient has homicidal ideation: No - Past Medical History Cardiac Medical History: Denies: Hx Hypercholesterolemia, Hx Hypertension Renal/ Medical History: Reports: Hx Kidney Stones. Denies: Hx Peritoneal Dialysis Past Surgical History: Reports: Hx Tonsillectomy, Hx Tubal Ligation - Immunizations Hx Diphtheria, Pertussis, Tetanus Vaccination: No Review of Systems - Review of Systems Notes: Constitutional: Positive for subjective fever and chills EENT: No eye redness. No eye pain. No ear pain. No sore throat. Cardiovascular: No chest pain. No palpitations. Respiratory: No cough. No shortness of breath. No respiratory distress. Gastrointestinal: Positive right flank pain positive nausea and vomiting. Negative diarrhea Genitourinary: Atraumatic. No lesions. No pain. No discharge. Musculoskeletal: Atraumatic. No swelling. No deformities. Skin: No rash or lesions. Lymphatic: No swollen lymph nodes. Neurologic: No headache. No syncope. Psychiatric: No suicidal or homicidal ideation. Physical Exam - Vital signs Vitals: Temp Pulse Resp BP Pulse Ox 100.1 F 103 H 18 103/70 98 12/15/18 16:55 12/15/18 16:55 12/15/18 16:55 12/15/18 16:55 12/15/18 16:55 - Notes Notes: General: Well-developed, well-nourished. In no acute distress. Non-toxic appearing. Cardiac: Well-perfused. Regular rate and rhythm. No murmurs, rubs, or gallops. Pulmonary: No respiratory distress. No cyanosis. Bilateral lung fiels are clear to auscultation. Abdominal: Positive right CVA tenderness. Abdomen is otherwise benign HEENT: Head is atraumatic. Conjunctivae not reddened. No tearing. PERRL. EOMI. Orbits atraumatic. No periorbital swelling or erythema. Oropharynx is without erythema, swelling, or exudates. Neck: Supple. No adenopathy. No meningismus. Dermatologic: Warm with good turgor. No rash. Atraumatic. Chest: Atraumatic. No chest wall tenderness to palpation. Musculoskeletal: Moves all extremities well. No range of motion deficits. no muscular or joint tenderness. No paraspinal muscle tenderness. no midline spinal tenderness or step-off. Genitourinary: Examination deferred Neurologic: No gross neurologic deficits. Psychiatric: Normal mood. Course - Re-evaluation Re-evalutation: 12/15/18 20:54 Urinalysis is strongly positive. No white count. Low-grade fever demonstrated here otherwise stable vital signs. - Vital Signs Vital signs: Temp Pulse Resp BP Pulse Ox 99.9 F 91 14 107/59 L 98 12/15/18 19:36 12/15/18 19:36 12/15/18 19:36 12/15/18 19:36 12/15/18 19:36 - Laboratory Result Diagrams: 12/15/18 17:46 12/15/18 17:46 Laboratory results interpreted by me: 12/15/18 12/15/18 17:40 17:46 Seg Neutrophils % 80.7 H Lymphocytes % 12.4 L Urine Protein 100 H Urine Ketones 80 H Urine Blood SMALL H Ur Leukocyte Esterase LARGE H - Diagnostic Test Radiology reviewed: Reports reviewed Discharge - Discharge Clinical Impression: Pyelonephritis Condition: Good Disposition: HOME, SELF-CARE Instructions: Pyelonephritis ([facility]), Rocephin ([facility]), Antinausea Medication ([facility]), Pain Medication Injection ([facility]), Antibiotic Therapy ([facility]) Additional Instructions: Start the oral antibiotic first thing in the morning. Be sure to take it 4 times daily as directed. You will have prescription for nausea medication as well if needed. If you continue to have a fever, treated with Tylenol or Motrin. Be sure to maintain hydration drinking at least 64 ounces of water per day. Recheck here 2 days for urine testing Prescriptions: Metoclopramide HCl [Reglan 10 mg Tablet] 1 tab PO Q6HP PRN #20 tablet PRN Reason: Cephalexin Monohydrate [Keflex 500 mg Capsule] 500 mg PO Q6H 10 Days #40 capsule Referrals: [facility] [Provider Group] - 12/19/18
[2018-12-15] MEDS ORDERED: HYDROMORPHONE HCL INJ/PF 2 MG/ML AMPULE IV ONE (20:58)
[2018-12-15] MEDS ORDERED: HYDROCODONE/ACETAMINOPHEN 5-325 MG (6 TAB/ER DISP) PO PRN (21:21)
== END 2018-12-15 21:43 | disposition home or self-care (01) ==
LOC: ER 16:51
DX: N12 Tubulo-interstitial nephritis, not specified as acute or chronic (principal); R10.9 Unspecified abdominal pain; R31.9 Hematuria, unspecified; R68.83 Chills (without fever); R53.1 Weakness; R11.2 Nausea with vomiting, unspecified
CPT/HCPCS: 99284; 96361; 96375; 96365; 36415; 87040; 87086; 84703; 85025; 87077; 87088; 80053; 81001; 87186; 76770; J2765; J1170; J2405; J7030; J0696